=== PATIENT | female | born 1970 | race Caucasian/White ===

== ENCOUNTER 2016-10-13 14:10 | Emergency (ER) | payer BC ==
[2016-10-13 14:56] VITALS: BP 103/58
--- NOTE | 2016-10-13 15:55 | UC ---
Throat Pain/Nasal Mac HPI - HPI Summary HPI Summary: FIVE DAYS OF SORE THROAT PRODUCTIVE COUGH FOR THREE DAYS. NO FEVER. NO WHEEZING. IS UNDERGOING CHEMOTHERAPY FOR OVARIAN CANCER, TWO MORE TREATMENTS, NEXT TREATMENT THIS SATURDAY. - History of Current Complaint Chief Complaint: UCGeneralIllness Stated Complaint: COUGH,TIGHT CHEST Time Seen by Provider: 10/13/16 15:38 Hx Obtained From: Patient Hx Last Menstrual Period: menopausal Onset/Duration: Gradual Onset, Lasting Days, Still Present Severity: Moderate Pain Intensity: 0 Pain Scale Used: 0-10 Numeric Cough: Nonproductive Associated Signs & Symptoms: Positive: Hoarseness, Nasal Discharge - Epiglottits Risk Factors Epiglottis Risk Factors: Negative - Allergies/Home Medications Allergies/Adverse Reactions: Allergies Allergy/AdvReac Type Severity Reaction Status Date / Time Latex Allergy Mild Rash Verified 10/13/16 14:56 Adhesive Tape Allergy Rash Verified 10/13/16 14:56 Home Medications: Home Medications Magnesium CITRATE* [Citrate of Magnesia*] 300 ml PO ONCE 10/13/16 [History Confirmed 10/13/16] Potassium Chlor TAB* [Klor Con ER TAB*] 10 meq PO DAILY 10/13/16 [History Confirmed 10/13/16] PMH/Surg Hx/FS Hx/Imm Hx Previously Healthy: Yes Endocrine History Of: Denies: Diabetes Cardiovascular History Of: Denies: Cardiac Disorders, Hypertension, Pacemaker/ICD Respiratory History Of: Reports: Asthma GI/ History Of: Denies: Renal Disease - Surgical History Surgical History: Yes Surgery Procedure, Year, and Place: Adnoidectomy. Cholecystectomy. Diaphragm wrapped around esophagus to fix GERD. left index finger and right middle finger cysts removed. C SECTION. Ovarian cancer - Family History Known Family History: Positive: Cardiac Disease, Hypertension - Social History Occupation: Employed Full-time Lives: With Family Alcohol Use: Occasionally Substance Use Type: None Smoking Status (MU): Never Smoked Tobacco - Immunization History Most Recent Influenza Vaccination: NOT THIS YEAR Review of Systems Constitutional: Negative Skin: Negative Eyes: Negative ENT: Sore Throat, Nasal Discharge Respiratory: Cough Cardiovascular: Negative Gastrointestinal: Negative Genitourinary: Negative Motor: Negative Neurovascular: Negative Musculoskeletal: Negative Neurological: Negative Psychological: Negative All Other Systems Reviewed And Are Negative: Yes Physical Exam Triage Information Reviewed: Yes Appearance: No Pain Distress, Well-Nourished, Ill-Appearing - MILDLY Vital Signs: Initial Vital Signs Temp 98.9 F 10/13/16 14:51 Pulse 97 10/13/16 14:51 Resp 16 10/13/16 14:51 BP 103/58 10/13/16 14:51 Pulse Ox 99 10/13/16 14:51 Vital Signs Reviewed: Yes Eye Exam: Normal ENT: Positive: Normal ENT inspection, Pharynx normal, Nasal congestion, TMs normal Dental Exam: Normal Neck exam: Normal Neck: Positive: Supple, Nontender, No Lymphadenopathy Respiratory Exam: Other - COUGH Respiratory: Positive: Chest non-tender, Lungs clear, Normal breath sounds, No respiratory distress, No accessory muscle use Cardiovascular Exam: Normal Cardiovascular: Positive: RRR, No Murmur Abdominal Exam: Normal Musculoskeletal Exam: Normal Musculoskeletal: Positive: Strength Intact, ROM Intact Neurological Exam: Normal Psychological Exam: Normal Skin Exam: Normal Throat Pain/Nasal Course/Dx - Differential Dx/Diagnosis Differential Diagnosis/HQI/PQRI: Pharyngitis, Sinusitis, URI Provider Diagnoses: SINUSITIS. BRONCHITIS Discharge - Discharge Plan Condition: Stable Disposition: HOME Prescriptions: Azithromycin TAB* [Zithromax TAB (Z-JOSE) 250 mg #6 tabs] 250 mg PO DAILY #6 tab Patient Education Materials: Sinusitis (ED), Acute Bronchitis (ED) Referrals: Sam MO,Italo Martinez [Primary Care Provider] -
== END 2016-10-13 15:50 | disposition home or self-care (01) ==
LOC: UCCORT 14:10
DX: J32.9 Chronic sinusitis, unspecified (principal); J40 Bronchitis, not specified as acute or chronic; Z90.49 Acquired absence of other specified parts of digestive tract
CPT/HCPCS: 99212; G0463

== ENCOUNTER 2018-06-18 17:23 | Emergency (ER) | payer BC ==
[2018-06-18 17:59] VITALS: BP 119/64
--- NOTE | 2018-06-18 18:16 | UC ---
Complaint Female HPI - HPI Summary HPI Summary: 48-year-old woman comes in with a chief complaint of burning with urination. This started about 3-4 days ago. It's been waxing and waning. Since this morning and it's been very frequent and she has a urgency and hurts quite a bit when she urinates. Pain is less when she is not urinating. Primary pain is in the suprapubic region and at the urethra. She does have some bilateral flank pain. No fevers. She was constipated but then she had a bowel movement which did resolve that issue. - History Of Current Complaint Chief Complaint: UCGU Stated Complaint: URINARY COMPLAINT Time Seen by Provider: 06/18/18 17:34 Hx Last Menstrual Period: 2013 Pain Intensity: 3 - Allergies/Home Medications Allergies/Adverse Reactions: Allergies Allergy/AdvReac Type Severity Reaction Status Date / Time latex Allergy Intermediate Rash Verified 06/18/18 18:00 Adhesive Tape Allergy Rash Verified 10/13/16 14:56 Home Medications: Home Medications Ibuprofen TAB* [Motrin TAB* 600 MG] 400 mg PO Q4H PRN 06/18/18 [History Confirmed 06/18/18] PMH/Surg Hx/FS Hx/Imm Hx Previously Healthy: Yes - OVARIAN CA; S/P TOTAL HYSTERECTOMY - Surgical History Surgical History: Yes Surgery Procedure, Year, and Place: Adnoidectomy. Cholecystectomy. Diaphragm wrapped around esophagus to fix GERD. left index finger and right middle finger cysts removed. C SECTION; 07/2017 benign abdominal masses; removed; inadverant intestinal laceration and subsequent 1.5 inch section taken. Ovarian cancer hysterectomy - Family History Known Family History: Positive: Cardiac Disease, Hypertension - Social History Alcohol Use: Occasionally Substance Use Type: None Smoking Status (MU): Never Smoked Tobacco - Immunization History Most Recent Influenza Vaccination: NOT THIS YEAR Review of Systems All Other Systems Reviewed And Are Negative: Yes Constitutional: Positive: Negative Skin: Positive: Negative Eyes: Positive: Negative ENT: Positive: Negative Respiratory: Positive: Negative Cardiovascular: Positive: Negative Gastrointestinal: Positive: Abdominal Pain Genitourinary: Positive: Dysuria, Frequency, Urgency Motor: Positive: Negative Neurovascular: Positive: Negative Musculoskeletal: Positive: Negative Neurological: Positive: Negative Psychological: Positive: Negative Is Patient Immunocompromised?: No Physical Exam Triage Information Reviewed: Yes Appearance: Well-Appearing, No Pain Distress, Well-Nourished Vital Signs: Initial Vital Signs Temp 97.9 F 06/18/18 17:49 Pulse 73 06/18/18 17:49 Resp 18 06/18/18 17:49 BP 119/64 06/18/18 17:49 Pulse Ox 100 06/18/18 17:49 Vital Signs Reviewed: Yes Eye Exam: Normal Eyes: Positive: Conjunctiva Clear Neck exam: Normal Neck: Positive: Supple Respiratory: Positive: Lungs clear, Normal breath sounds, No respiratory distress Cardiovascular: Positive: RRR Abdomen Description: Positive: Soft, CVA Tenderness (R) - MILD, CVA Tenderness ( L) - MILD, Other: - MILD SUPRAPUBIC TENDERNESS Bowel Sounds: Positive: Present Musculoskeletal Exam: Normal Musculoskeletal: Positive: Strength Intact, ROM Intact Neurological Exam: Normal Neurological: Positive: Alert, Muscle Tone Normal Psychological Exam: Normal Psychological: Positive: Age Appropriate Behavior Skin Exam: Normal Complaint Female Dx - Course Course Of Treatment: We discussed the urinalysis results. Symptoms are consistent with UTI and will treat with Keflex. Patient reports that she had difficulty with urination just prior to finding out she had ovarian cancer. She reports that she has CT exams every 4 months and her last one was 2 months ago and was normal. Plan is to treat for UTI and as long as she improves and just follow-up with primary care doctor but if she is not improving she needs to get reevaluated. - Differential Dx/Diagnosis Provider Diagnosis: UTI (urinary tract infection) Discharge - Sign-Out/Discharge Documenting (check all that apply): Patient Departure All imaging exams completed and their final reports reviewed: No Studies - Discharge Plan Condition: Stable Disposition: HOME Prescriptions: Cephalexin CAP* [Keflex CAP*] 500 mg PO TID #21 cap Patient Education Materials: Urinary Tract Infection in Women (ED) Referrals: Karolina PATRICIO,Amelia [Primary Care Provider] - Additional Instructions: FOLLOW UP WITH YOUR DOCTOR IF NOT COMPLETELY IMPROVED. GET RECHECKED FOR ANY WORSENING OF YOUR CONDITION; FEVER, PAIN, YOU FEEL ILL OR QUESTIONS OR CONCERNS. - Billing Disposition and Condition Condition: STABLE Disposition: Home
== END 2018-06-18 18:20 | disposition home or self-care (01) ==
LOC: UCCORT 17:23
DX: N39.0 Urinary tract infection, site not specified (principal); Z85.43 Personal history of malignant neoplasm of ovary
CPT/HCPCS: 81003; 87086; 99212; G0463

== ENCOUNTER 2018-12-30 19:39 | Emergency (ER) | payer BC ==
--- OUTSIDE RECORDS SUMMARY | 2018-12-30 20:06 | XMS REPORT | Continuity of Care Document ---
:1970 External Reference #:[id number] Author Name Lia Diaz MD Address [address] [facility] [address] [place] [address] Care Team Providers Name Role Phone Amelia Turcios Care Team Information Sulfide Head Operator Unavailable Italo Vargas MD Primary Care Physician Unavailable Payers Date Identification Numbers Payment Provider Subscriber Effective: 2013 Policy Number: [id number] [employer] Rose Marie Batista PayID: [id number] [address] [address] [place] [address] Social History Type Date Description Comments Sex Unknown Tobacco Use Reviewed: 06/18/17 Never Smoked Cigarettes Smoking Status Reviewed: 06/18/17 Never Smoked Cigarettes ETOH Use Occasionally consumes beer Allergies, Adverse Reactions, Alerts Active Allergies Reaction Severity Comments Date NKDA 06/15/2016 Adhesives RASH 06/15/2016 Latex RASH 06/15/2016 Medications Active Medications SIG Qnty Indications Ordering Provider Date Proair HFA 2 puffs qid, Unknown 108(90Base) mcg/Act prn Aerosol Asmanex HFA 2 puffs, bid Unknown 100mcg/Act Aerosol Atorvastatin Calcium 2-3 times Unknown 20mg weekly Tablets Adult Aspirin Ec Low qd Unknown Strength 81mg Tablets DR Fludrocortisone Acetate 1 daily Unknown 0.1mg Tablets History Medications Ibuprofen 1 by mouth with 90tabs Jacqueline Palacios, 12/27/2017 - 600mg Tablets food every 6-8 LUBRICATING SPECIALIST 08/02/2018 hours as needed pain Hydrocodone-Acetaminophe 1-2 by mouth every 40tabs Jacqueline Palacios, 2016 - n 4-6 hours as needed LUBRICATING SPECIALIST 07/31/2017 5-325mg Tablets pain after surgery Prepopik use as directed by 1kit Jacqueline Palacios, 06/26/2017 - 10-3.9-09si-HQ-GM your physician LUBRICATING SPECIALIST 07/31/2017 Packet Zofran 1 by mouth prn 2tabs Jacqueline Palacios, 06/26/2017 - 8mg Tablets nausea may repeat LUBRICATING SPECIALIST 07/31/2017 in 8hrs prn nausea Neomycin Sulfate 2 tabs by mouth at 6tabs Jacqueline Palacios, 06/26/2017 - 500mg 1pm, 3pm, 11pm day LUBRICATING SPECIALIST 07/31/2017 Tablets prior to surgery Metronidazole 2 tabs by mouth at 6tabs Jacqueline Palacios, 06/26/2017 - 500mg Tablets 1pm, 3pm and 11pm LUBRICATING SPECIALIST 07/31/2017 day before surgery Magnesium Oxide one by mouth 3 60tabs Jacqueline Palacios, 09/20/2016 - 400mg Tablets times per day LUBRICATING SPECIALIST 12/02/[address] [facility] Jacqueline Palacios, 08/31/2016 - 3.1mg/24HR Patches arm 24 hours prior LUBRICATING SPECIALIST 12/04/2016 to your chemotherapy date q 21 days Prochlorperazine Maleate 1 by mouth as 60tabs Jacqueline Palacios, 08/31/2016 - 10mg needed may repeat 1 LUBRICATING SPECIALIST 04/26/2017 Tablets tab in 8 hours as needed Neupogen 1 sq injection .500ml Melissa Espinoza, 08/21/2016 - 300mcg/0.5ML Soln every day as M.D. 08/28/2016 Prefill Syringe directed by qd x 3 Donated meds Ra Loratadine take one by mouth 30tabs Chemo, Patients 08/21/2016 - 10mg Tablets 1-2 hours before 12/04/2016 neulasta and then daily x 7 days Claritin every day and as Melissa Espinoza, 08/21/2016 - 10mg Tablets needed for neupogen M.D. 01/04/2017 x 5 and Neulasta qd x 7 Ciprofloxacin HCL one tablet by mouth 10tabs Jacqueline Palacios, 08/21/2016 - 500mg twice a day for 5 LUBRICATING SPECIALIST 08/28/2016 Tablets days Neulasta sc 24-48 hours .600ml Jacqueline Palacios, 08/20/2016 - 6mg/0.6ML Soln after chemo every LUBRICATING SPECIALIST 12/04/2016 Prefill Syringe 21 days as directed by Dexamethasone take 2 tabs in in 30tabs Melissa Espinoza, 08/01/2016 - 4mg Tablets the morning and at M.D. 12/04/2016 night the day before chemo and repeat the day after chemo each cycle Lovenox 1 sq inj. every day 42units Jacqueline Palacios, 07/20/2016 - 40mg/0.4ML Solution post op for 6wks LUBRICATING SPECIALIST 08/01/2016 B-6 1 by mouth twice a 60tabs Chemo, Patients 07/20/2016 - 50mg Tablets day 12/02/2017 Potassium Chloride ER one by mouth every 30tabs Jacqueline Palacios, 2016 - 20Meq day as directed MDD LUBRICATING SPECIALIST 12/02/2017 Tablets ER 1 Imodium A-D 2 now and 1 q 6 hrs Chemo, Patients 07/17/2016 - 2mg Capsules as needed diarrhea 12/04/2016 Zofran 1 by mouth q6hr as 60tabs Melissa Espinoza, 06/27/2016 - 4mg Tablets needed for nausea M.D. 12/04/2016 Ondansetron HCL 1-2tabs q 6-8hrs 2tabs Melissa Espinoza, 06/15/2016 - 4mg Tablets prn nausea M.D. 12/04/2016 Hydrocodone-Acetaminophe 1-2 by mouth every 40tabs Melissa Espinoza, 2015 - n 4-6 hours as needed M.D. 07/16/2016 5-325mg Tablets pain Ibuprofen 1 by mouth every 6 40tabs Jacqueline Palacios, 06/15/2016 - 600mg Tablets hours as needed LUBRICATING SPECIALIST 07/31/2017 pain after surgery Metronidazole 2 tabs by mouth at 6tabs Melissa Espinoza, 06/15/2016 - 500mg Tablets 1pm, 3pm and 11pm M.D. 07/06/2016 day before surgery Neomycin Sulfate 2 tabs by mouth at 6tabs Melissa Espinoza, 06/15/2016 - 500mg 1pm, 3pm, 11pm day M.D. 07/06/2016 Tablets prior to surgery Prepopik as directed 1kit Melissa Espinoza, 06/15/2016 - 10-3.4-82pj-YW-GM M.D. 07/04/2016 Packet Aspir-81 1 qd Unknown - 81mg Tablets DR 04/05/2017 Fludrocortisone Acetate 1 qd Unknown - 0.1mg 08/02/2018 Tablets Azithromycin 2 tablets on day 1 Unknown - 250mg Tablets and 1 tab by mouth 10/17/2016 x 3 days thereafter Lovenox 1 sq inj. every day Unknown - 40mg/0.4ML Solution post op for 6wks 08/27/2017 Immunizations CPT Code Status Date Vaccine Lot # [id number] Refused 06/15/2016 Influenza Virus Split Vaccine Vital Signs Date Vital Result Comment 12/09/2018 12:27pm BP Systolic 109 mmHg BP Diastolic 64 mmHg Heart Rate 66 /min Respiratory Rate 16 /min Height 61 inches 5'1" Weight 160.00 lb BSA (Body Surface Area) 1.72 m2 BMI (Body Mass Index) 30.2 kg/m2 Height in cm's 154.9 cm Weight 72.576 kg 08/12/2018 1:50pm BP Systolic 104 mmHg BP Diastolic 60 mmHg Heart Rate 83 /min Respiratory Rate 16 /min Height 61 inches 5'1" Weight 159.00 lb BSA (Body Surface Area) 1.71 m2 BMI (Body Mass Index) 30.0 kg/m2 Height in cm's 154.9 cm Weight 72.122 kg 04/08/2018 2:56pm BP Systolic 111 mmHg BP Diastolic 68 mmHg Heart Rate 85 /min Respiratory Rate 16 /min Height 61 inches 5'1" Weight 157.00 lb BSA (Body Surface Area) 1.70 m2 BMI (Body Mass Index) 29.7 kg/m2 Height in cm's 154.9 cm Weight 71.215 kg 12/03/2017 3:10pm BP Systolic 107 mmHg BP Diastolic 64 mmHg Heart Rate 75 /min Respiratory Rate 16 /min Height 61 inches 5'1" Weight 151.00 lb BSA (Body Surface Area) 1.68 m2 BMI (Body Mass Index) 28.5 kg/m2 Height in cm's 154.9 cm Weight 68.494 kg 08/29/2017 9:30am BP Systolic 107 mmHg BP Diastolic 60 mmHg Heart Rate 74 /min Respiratory Rate 16 /min Height 61 inches 5'1" Weight 144.00 lb BSA (Body Surface Area) 1.64 m2 BMI (Body Mass Index) 27.2 kg/m2 Height in cm's 154.9 cm Weight 65.318 kg 08/01/2017 9:03am BP Systolic 109 mmHg BP Diastolic 66 mmHg Heart Rate 97 /min Respiratory Rate 16 /min Height 61 inches 5'1" Weight 138.00 lb BSA (Body Surface Area) 1.61 m2 BMI (Body Mass Index) 26.1 kg/m2 Height in cm's 154.9 cm Weight 62.597 kg 06/18/2017 2:48pm BP Systolic 105 mmHg BP Diastolic 60 mmHg Heart Rate 65 /min Respiratory Rate 16 /min Height 61 inches 5'1" Weight 147.00 lb BSA (Body Surface Area) 1.66 m2 BMI (Body Mass Index) 27.8 kg/m2 Height in cm's 154.9 cm Weight 66.679 kg 05/16/2017 11:52am BP Systolic 111 mmHg BP Diastolic 59 mmHg Heart Rate 90 /min Respiratory Rate 16 /min Height 61 inches 5'1" Weight 144.00 lb BSA (Body Surface Area) 1.64 m2 BMI (Body Mass Index) 27.2 kg/m2 Height in cm's 154.9 cm Weight 65.318 kg 02/07/2017 11:52am BP Systolic 107 mmHg BP Diastolic 66 mmHg Heart Rate 85 /min Respiratory Rate 16 /min Height 61 inches 5'1" Weight 146.00 lb BSA (Body Surface Area) 1.65 m2 BMI (Body Mass Index) 27.6 kg/m2 Height in cm's 154.9 cm Weight 66.226 kg 12/07/2016 11:21am BP Systolic 111 mmHg BP Diastolic 70 mmHg Heart Rate 87 /min Respiratory Rate 16 /min Height 61 inches 5'1" Weight 143.00 lb BSA (Body Surface Area) 1.64 m2 BMI (Body Mass Index) 27.0 kg/m2 Height in cm's 154.9 cm Weight 64.865 kg 11/09/2016 8:57am BP Systolic 121 mmHg BP Diastolic 72 mmHg Heart Rate 98 /min Respiratory Rate 16 /min Height 61 inches 5'1" Weight 130.00 lb O2 % BldC Oximetry 98 % BSA (Body Surface Area) 1.57 m2 BMI (Body Mass Index) 24.6 kg/m2 Height in cm's 154.9 cm Weight 58.968 kg 10/15/2016 9:25am BP Systolic 111 mmHg BP Diastolic 69 mmHg Heart Rate 123 /min Respiratory Rate 16 /min Height 61 inches 5'1" Weight 139.00 lb O2 % BldC Oximetry 98 % BSA (Body Surface Area) 1.62 m2 BMI (Body Mass Index) 26.3 kg/m2 Height in cm's 154.9 cm Weight 63.050 kg 09/21/2016 8:47am BP Systolic 114 mmHg BP Diastolic 63 mmHg Heart Rate 100 /min Respiratory Rate 16 /min Height 61 inches 5'1" Weight 136.00 lb O2 % BldC Oximetry 100 % BSA (Body Surface Area) 1.60 m2 BMI (Body Mass Index) 25.7 kg/m2 Height in cm's 154.9 cm Weight 61.690 kg 08/31/2016 8:56am BP Systolic 114 mmHg BP Diastolic 69 mmHg Heart Rate 100 /min Respiratory Rate 16 /min Height 61 inches 5'1" Weight 132.00 lb BSA (Body Surface Area) 1.58 m2 BMI (Body Mass Index) 24.9 kg/m2 Height in cm's 154.9 cm Weight 59.875 kg 08/21/2016 2:34pm BP Systolic 115 mmHg BP Diastolic 70 mmHg Heart Rate 97 /min Body Temperature 97.6 F Height 61 inches 5'1" O2 % BldC Oximetry 99 % Height in cm's 154.9 cm 08/10/2016 9:12am BP Systolic 108 mmHg BP Diastolic 64 mmHg Heart Rate 98 /min Respiratory Rate 16 /min Height 61 inches 5'1" Weight 133.00 lb O2 % BldC Oximetry 97 % BSA (Body Surface Area) 1.59 m2 BMI (Body Mass Index) 25.1 kg/m2 Height in cm's 154.9 cm Weight 60.329 kg 07/20/2016 9:37am BP Systolic 97 mmHg BP Diastolic 60 mmHg Heart Rate 86 /min Respiratory Rate 16 /min Height 61 inches 5'1" Weight 124.00 lb O2 % BldC Oximetry 98 % BSA (Body Surface Area) 1.54 m2 BMI (Body Mass Index) 23.4 kg/m2 Height in cm's 154.9 cm Weight 56.246 kg 07/06/2016 1:29pm BP Systolic 111 mmHg Post Hydration BP Diastolic 71 mmHg Post Hydration Heart Rate 82 /min Body Temperature 98.1 F Height 61 inches 5'1" O2 % BldC Oximetry 98 % Height in cm's 154.9 cm 07/06/2016 10:37am BP Systolic 113 mmHg BP Diastolic 66 mmHg Heart Rate 106 /min Body Temperature 98.4 F Respiratory Rate 16 /min Height 61 inches 5'1" Weight 123.00 lb BSA (Body Surface Area) 1.54 m2 BMI (Body Mass Index) 23.2 kg/m2 Height in cm's 154.9 cm Weight 55.793 kg 06/15/2016 11:19am BP Systolic 115 mmHg BP Diastolic 73 mmHg Heart Rate 77 /min Respiratory Rate 16 /min Height 61 inches 5'1" Weight 139.00 lb BSA (Body Surface Area) 1.62 m2 BMI (Body Mass Index) 26.3 kg/m2 Height in cm's 154.9 cm Weight 63.050 kg Results Test Date Facility Test Result H/L Range Note Laboratory test 11/26/2018 Lab [facility] [place] 125 @ 4.7 U/mL (<30.2) 1 finding [phone] Laboratory test 11/26/2018 [facility] Urea Nitrogen 23 mg/dL (7- 24) finding [phone] Creatinine 11/26/2018 [facility] Creatinine 0.76 mg/dL (0.60-1.00 ) [phone] GFR >60 ml/min/1.73m2 (>59) GFR ( Amer) >60 ml/min/1.73m2 (>59) GFR Interpretation <SEE NOTE> 2 Laboratory test finding 07/18/2018 [facility] [place] 125 <pending> BUN - Urea Nitrogen <pending> Creatinine Serum Mass/Vol <pending> Laboratory test 07/18/2018 [facility] Urea Nitrogen 22 mg/dL (7- 24) finding [phone] Creatinine 07/18/2018 Lab [facility] Creatinine 0.83 mg/dL (0.60-1.00 ) [phone] GFR >60 ml/min/1.73m2 (>59) GFR ( Amer) >60 ml/min/1.73m2 (>59) GFR Interpretation <SEE NOTE> 3 Laboratory test 07/18/2018 Lab [facility] [place] 125 @ 4.9 U/mL (<30.2) 4 finding [phone] Creatinine 04/26/2017 [facility] Creatinine 0.71 mg/dL (0.60-1.00 ) [phone] GFR >60 ml/min/1.73m2 (>59) GFR ( Amer) >60 ml/min/1.73m2 (>59) GFR Interpretation <SEE NOTE> 5 Laboratory test 04/26/2017 [facility] Urea Nitrogen 21 mg/dL (7- 24) finding [phone] Laboratory test 04/26/2017 [facility] [place] 125 @ 3.7 U/mL (<21.0) 6 finding [phone] C Diff Toxin B 07/06/2016 [facility] Specimen STOOL PCR Stool [phone] Description C Diff Toxin B NEGATIVE (Neg) 027 Nap1 B1 NEGATIVE (Neg) Comment NOTE: IF REFLEX <SEE NOTE> 7 1 ASSAY BY IMMUNOCHEMILUMINOMETRIC ASSAY ON THE [employer] XPT. VALUES OBTAINED WITH DIFFERENT METHODS OR KITS CANNOT BE USED INTERCHANGEABLY FOR PATIENT MONITORING. RESULTS CANNOT BE INTERPRETED ABSOLUTE EVIDENCE OF THE PRESENCE OR ABSENCE OF MALIGNANCY. THE TEST IS NOT INTERPRETABLE IN . 2 NORMAL KIDNEY FUNCTION OR MILD DISEASE - GFR >OR=60 CHRONIC KIDNEY DISEASE - GFR 15 - 59 RENAL FAILURE - GFR <15 Est. GFR calculation based on the MDRD study equation, which assumes a steady state for creatinine. Est. GFR should not be used for medication dosing. 3 NORMAL KIDNEY FUNCTION OR MILD DISEASE - GFR >OR=60 CHRONIC KIDNEY DISEASE - GFR 15 - 59 RENAL FAILURE - GFR <15 Est. GFR calculation based on the MDRD study equation, which assumes a steady state for creatinine. Est. GFR should not be used for medication dosing. 4 ASSAY BY IMMUNOCHEMILUMINOMETRIC ASSAY ON THE [employer] XPT. VALUES OBTAINED WITH DIFFERENT METHODS OR KITS CANNOT BE USED INTERCHANGEABLY FOR PATIENT MONITORING. RESULTS CANNOT BE INTERPRETED ABSOLUTE EVIDENCE OF THE PRESENCE OR ABSENCE OF MALIGNANCY. THE TEST IS NOT INTERPRETABLE IN . 5 NORMAL KIDNEY FUNCTION OR MILD DISEASE - GFR >OR=60 CHRONIC KIDNEY DISEASE - GFR 15 - 59 RENAL FAILURE - GFR <15 Est. GFR calculation based on the MDRD study equation, which assumes a steady state for creatinine. Est. GFR should not be used for medication dosing. 6 ASSAY BY IMMUNOCHEMILUMINOMETRIC ASSAY ON THE [employer]EM[employer] 2000 XPi. VALUES OBTAINED WITH DIFFERENT METHODS OR KITS CANNOT BE USED INTERCHANGEABLY FOR PATIENT MONITORING. RESULTS CANNOT BE INTERPRETED ABSOLUTE EVIDENCE OF THE PRESENCE OR ABSENCE OF MALIGNANCY. THE TEST IS NOT INTERPRETABLE IN . 7 NOTE: IF REFLEX CULTURE FOR KLEBSIELLA OXYTOCA IS CLINICALLY INDICATED, PLEASE CONTACT THE [facility]OLOGY LAB[facility]ORY ([phone]) WITHIN 3 DAYS OF THIS REPORT. Procedures Date Code Description Status 11/26/2018 00311 Collection Of Blood From Completly Implantable Venous Completed Access Dev 09/24/2018 81328 Irrigation Of Implanted Device For Drug Delivery Completed 09/19/2018 87516 Irrigation Of Implanted Device For Drug Delivery Completed 07/18/2018 13182 Collection Of Blood From Completly Implantable Venous Completed Access Dev 05/09/2018 18692 Irrigation Of Implanted Device For Drug Delivery Completed 03/07/2018 17508 Irrigation Of Implanted Device For Drug Delivery Completed 12/25/2017 17267 Irrigation Of Implanted Device For Drug Delivery Completed 10/02/2017 39237 Irrigation Of Implanted Device For Drug Delivery Completed 07/12/2017 48245 Enterectomy Resect Small Intestine W/Anastomosis (Single Completed Resect) 04/26/2017 56361 Collection Of Blood From Completly Implantable Venous Completed Access Dev 02/18/2017 16717 Irrigation Of Implanted Device For Drug Delivery Completed 11/09/2016 14195 IV Hydration Each Addl Hour (Intervals Of Greater Than 30 Completed Min) 11/09/2016 92569 IV Sequential Up To 1 HR New Drug Completed 11/09/2016 92855 IV Push Ea Addl Subsequent Completed 11/09/2016 05221 Chemo Admin IV Initial Up To 1 HR /Single Drug Completed 11/09/2016 24014 Chemo Admin Sequential Ea Addl HR Drug W/75911 Completed 10/15/2016 78164 Chemo Admin Sequential Ea Addl HR Drug W/22651 Completed 10/15/2016 36369 Chemo Admin IV Initial Up To 1 HR /Single Drug Completed 10/15/2016 26395 IV Push Ea Addl Subsequent Completed 10/15/2016 16047 IV Sequential Up To 1 HR New Drug Completed 10/15/2016 74974 IV Hydration Each Addl Hour (Intervals Of Greater Than 30 Completed Min) 09/21/2016 02102 IV Hydration Each Addl Hour (Intervals Of Greater Than 30 Completed Min) 09/21/2016 53585 IV Sequential Up To 1 HR New Drug Completed 09/21/2016 29006 IV Push Ea Addl Subsequent Completed 09/21/2016 13539 Chemo Admin IV Initial Up To 1 HR /Single Drug Completed 09/21/2016 51113 Chemo Admin IV Each Addl HR Completed 09/21/2016 12695 Chemo Admin Sequential Ea Addl HR Drug W/03244 Completed 08/31/2016 50188 Chemo Admin Sequential Ea Addl HR Drug W/02755 Completed 08/31/2016 37287 Chemo Admin IV Each Addl HR Completed 08/31/2016 86597 Chemo Admin IV Initial Up To 1 HR /Single Drug Completed 08/31/2016 47522 IV Push Ea Addl Subsequent Completed 08/31/2016 04693 IV Sequential Up To 1 HR New Drug Completed 08/31/2016 65809 IV Hydration Each Addl Hour (Intervals Of Greater Than 30 Completed Min) 08/21/2016 88075 Admin Of Inj (Therapeutic,Phrophylactic Or Diagnostic Subq Completed 08/10/2016 69869 IV Hydration Each Addl Hour (Intervals Of Greater Than 30 Completed Min) 08/10/2016 87982 IV Push Ea Addl Subsequent Completed 08/10/2016 07265 Chemo Admin IV Initial Up To 1 HR /Single Drug Completed 08/10/2016 36151 Chemo Admin IV Each Addl HR Completed 08/10/2016 50373 Chemo Admin Sequential Ea Addl HR Drug W/82823 Completed 07/20/2016 09461 Chemo Admin Sequential Ea Addl HR Drug W/67529 Completed 07/20/2016 01435 Chemo Admin IV Each Addl HR Completed 07/20/2016 43567 Chemo Admin IV Initial Up To 1 HR /Single Drug Completed 07/20/2016 71691 IV Push Ea Addl Subsequent Completed 07/20/2016 62950 IV Hydration Each Addl Hour (Intervals Of Greater Than 30 Completed Min) 07/06/2016 27144 IV Push Ea Addl Subsequent Completed 07/06/2016 59162 IV Push Initial Drug Completed 07/06/2016 65258 IV Hydration Each Addl Hour (Intervals Of Greater Than 30 Completed Min) 06/19/2016 01351 Bilateral Salpingo-Oophorectomy,W/Pelvic Lymphadenectomy Completed Paraaort Encounters Type Date Location Provider Dx Diagnosis Office Visit 12/09/2018 [facility] C56.1 Malignant neoplasm 12:15p satnam CHO MD of right ovary 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 R10.31 Right lower quadrant pain Office Visit 08/12/2018 2:30p [facility] L[facility] Diaz C56.1 Malignant satnam CHO MD neoplasm of right ovary 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 R59.0 Localized enlarged lymph nodes Office Visit 04/08/2018 3:00p [facility] Jacqueline Palacios C56.2 Malignant satnam CHO NP neoplasm of left ovary 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 Z12.31 Encntr screen mammogram for malignant neoplasm of breast R19.7 Diarrhea, unspecified N95.1 Menopausal and female climacteric states Office Visit 12/03/2017 3:15p [facility] [place], C56.1 Malignant CNY, pc neoplasm of right ovary 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 K59.1 Functional diarrhea Office Visit 06/18/2017 3:00p [facility] L[facility] Wynn C78.6 Secondary Of CNY, pc MD Emily malignant neoplasm of retroperiton and peritoneum 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 Office Visit 05/16/2017 11:45a [facility] L[facility] Farrisgladys C56.1 Malignant CNY, [place] neoplasm of right ovary R59.0 Localized enlarged lymph nodes K59.1 Functional diarrhea Office Visit 02/07/2017 11:45a [facility] L[facility] Wynn Emily C56.1 Malignant CNY, pc neoplasm of right ovary R19.7 Diarrhea, unspecified K62.5 Hemorrhage of anus and rectum Office Visit 12/07/2016 11:30a [facility] Espinoza C56.1 Malignant CNY, pc Solange neoplasm of right ovary H91.8x3 Other specified hearing loss, bilateral Office Visit 11/09/2016 8:45a [facility] Jacqueline Suzanne C56.1 Malignant CNY, pc LUBRICATING SPECIALIST neoplasm of right ovary 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 E83.42 Hypomagnesemia H91.8x3 Other specified hearing loss, bilateral Z01.818 Encounter for other preprocedural examination Z79.899 Other terminal carman (current) drug therapy Z51.11 Encounter for antineoplastic chemotherapy Office Visit 10/15/2016 9:15a [facility] Palacios C56.1 Malignant CNY, pc LUBRICATING SPECIALIST neoplasm of right ovary 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.8x3 Other specified hearing loss, bilateral Z01.818 Encounter for other preprocedural examination Z79.899 [place] [facility]current[facility] drug therapy Z51.11 Encounter for antineoplastic chemotherapy Office Visit 09/21/2016 9:15a [facility]qu[facility] Palacios C56.1 Malignant CNY, pc LUBRICATING SPECIALIST neoplasm of right ovary 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 Z01.818 Encounter for other preprocedural examination Z79.899 [facility] [place] [facility] (current) drug therapy Z51.11 Encounter for antineoplastic chemotherapy Office Visit 08/31/2016 9:15a [facility]queline Teixeirarashard, C56.1 Malignant CNY, pc LUBRICATING SPECIALIST neoplasm of right ovary 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 D70.1 Agranulocytosis secondary to cancer chemotherapy Z01.818 Encounter for other preprocedural examination Z79.899 Other [place] [facility] (current) drug therapy Z51.11 Encounter for antineoplastic chemotherapy Office Visit 08/10/2016 8:45a [facility]eline Teixe[place], C56.1 Malignant CNY, pc LUBRICATING SPECIALIST neoplasm of right ovary Z01.818 Encounter for other preprocedural examination Z79.899 Other [place] (current) drug therapy Z51.11 Encounter for antineoplastic chemotherapy H91.8x3 Other specified hearing loss, bilateral Office Visit 07/20/2016 9:45a [facility] Jacqueline Teixeirarashard, C56.1 Malignant CNY, pc LUBRICATING SPECIALIST neoplasm of right ovary R19.7 Diarrhea, unspecified H91.8x3 Other specified hearing loss, bilateral Z01.818 Encounter for other preprocedural examination Z51.11 Encounter for antineoplastic chemotherapy Office Visit 07/06/2016 10:45a [facility] Espinoza, E86.0 Dehydration CNY, pc M.D. R19.7 Diarrhea, unspecified Z01.818 Encounter for other preprocedural examination 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 Z51.11 Encounter for antineoplastic chemotherapy Office Visit 06/15/2016 12:00p [facility] Espinoza, D39.11 Neoplasm of CNY, pc M.D. uncertain behavior of right ovary Plan of Treatment Future Appointment(s):06/12/2019 2:30 pm - Jacqueline Palacios NP at [facility], 2019 3:45 pm - Lia Diaz MD at [facility], 12/09/2018 - Lia Diaz, MD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Comments:In remission with normal exam, CT and CA125.Follow up:In 6 months for reevaluation of disease.C56.2 Malignant neoplasm of left fihlrK89.31 Right lower quadrant painComments:Could be due to the inflammation seen in the ileum previously - would try probiotics and if no improvement can return to see GI.
[2018-12-30 20:15] VITALS: BP 122/71
--- NOTE | 2018-12-30 20:24 | UC ---
Lower Extremity/Ankle HPI - HPI Summary HPI Summary: 48 y/o female presents to the urgent care c/o RT ankle pain for the past 3 months which has worsen w/ time. Pain is worse when she wakes up and gets better through out the day. but lately at the end of the day is worse and ankle is mildly swollen on the medial aspect for her RT ankle. At rest pain is 3/10, but when she walks or puts pressure, it is 7/10 radiating to her heel. Pt has been taken Ibuprofen 600mg PO to alleviate symptoms. Pt can ambulate w/o limping,. Pt denies Hx of Gout, fever, dizziness, SOB, chest pain, abdominal pain, N/V/D, BORGES, numbness or tingling sensation over her lower extremities. - History of Current Complaint Chief Complaint: UCLowerExtremity Stated Complaint: RT ANKLE COMPLAINT Time Seen by Provider: 12/30/18 20:24 Hx Obtained From: Patient Hx Last Menstrual Period: 2013 ?: No - menopausal Onset/Duration: Gradual Onset, Lasting Weeks - 3 months, Still Present Severity Initially: Mild Severity Currently: Moderate Pain Intensity: 8 Pain Scale Used: 0-10 Numeric Aggravating Factor(s): Standing, Ambulation Alleviating Factor(s): Rest, Elevation, OTC Meds Able to Bear Weight: Yes - Risk Factors Gout Risk Factors: Negative DVT Risk Factors: Negative Septic Arthritis Risk Factor: Negative - Allergies/Home Medications Allergies/Adverse Reactions: Allergies Allergy/AdvReac Type Severity Reaction Status Date / Time latex Allergy Intermediate Rash Verified 12/30/18 20:14 Adhesive Tape Allergy Rash Verified 12/30/18 20:14 Home Medications: Home Medications Aspirin 81 mg CHEW TAB* 81 mg PO DAILY 12/30/18 [History Confirmed 12/30/18] PMH/Surg Hx/FS Hx/Imm Hx Previously Healthy: Yes Other Cardiovascular History: low blod pressure Respiratory History: Asthma - Surgical History Surgical History: Yes Surgery Procedure, Year, and Place: Adnoidectomy. Cholecystectomy. Diaphragm wrapped around esophagus to fix GERD. left index finger and right middle finger cysts removed. C SECTION; 07/2017 benign abdominal masses; removed; inadverant intestinal laceration and subsequent 1.5 inch section taken. Ovarian cancer hysterectomy - Family History Known Family History: Positive: Cardiac Disease, Hypertension - Social History Occupation: Employed Full-time Lives: With Family Alcohol Use: Occasionally Substance Use Type: None Smoking Status (MU): Never Smoked Tobacco - Immunization History Most Recent Influenza Vaccination: NOT THIS YEAR Review of Systems All Other Systems Reviewed And Are Negative: Yes Constitutional: Positive: Negative Skin: Positive: Negative Eyes: Positive: Negative ENT: Positive: Negative Respiratory: Positive: Negative Cardiovascular: Positive: Negative Gastrointestinal: Positive: Negative Genitourinary: Positive: Negative Motor: Positive: Negative Neurovascular: Positive: Negative Musculoskeletal: Positive: Decreased ROM - RT ankle, Other: - RT ankle pain x 3 months Neurological: Positive: Negative Psychological: Positive: Negative Is Patient Immunocompromised?: No Physical Exam - Summary Physical Exam Summary: Vital Signs Reviewed: Yes General: well developed, well nourished female, sitting in the examining table w /o any apparent distress Eyes: Positive: Conjunctiva Clear - PERRLA, EOMI, ENT: Positive: Normal ENT inspection, Hearing grossly normal, Pharynx normal, TMs normal Neck: Positive: Supple, Nontender, No Lymphadenopathy Respiratory: Positive: Chest non-tender, Lungs clear, Normal breath sounds, No respiratory distress Cardiovascular: Positive: RRR, No Murmur, Pulses Normal, Brisk Capillary Refill Abdomen Description: Positive: Nontender, No Organomegaly, Soft. Negative: CVA Tenderness (R), CVA Tenderness (L) Bowel Sounds: Positive: Present Musculoskeletal: - Ankle: Pt is able to bear weight and ambulate w/ limping. The R ankle is without obvious asymmetry or deformity when compared to the L ankle. Decreased ROM due to pain. Mild swelling at the medial malleolus, with tenderness to palpation also point tenderness over the heel. No ecchymosis or bruising observed. NO Tenderness to palpation over the lateral malleolus , no swelling observed. Talar tilt test is negative for ligament laxity to valgus or varus stress. Negative anterior drawer. Peroneal nerve is intact with strong eversion and plantar flexion. Positive sensation over the Rt foot and Rt ankle, positive pulses, capillary refill intact Neurological Exam: Normal Psychological Exam: Normal Skin: warm and dry Triage Information Reviewed: Yes Vital Signs: Initial Vital Signs Temp 98.9 F 12/30/18 20:10 Pulse 73 12/30/18 20:10 Resp 16 12/30/18 20:10 BP 122/71 12/30/18 20:10 Pulse Ox 98 12/30/18 20:10 Lower Extremity Course/Dx - Course Course Of Treatment: 48 y/o female presents to the urgent care c/o RT ankle pain for the past 3 months which has worsen w/ time. Pain is worse when she wakes up and gets better through out the day. but lately at the end of the day is worse and ankle is mildly swollen on the medial aspect for her RT ankle. At rest pain is 3/10, but when she walks or puts pressure, it is 7/10 radiating to her heel. Pt has been taken Ibuprofen 600mg PO to alleviate symptoms. Pt can ambulate w/o limping,. Pt denies Hx of Gout, fever, dizziness, SOB, chest pain, abdominal pain, N/V/D, BORGES, numbness or tingling sensation over her lower extremities. Hx obtained. Pt is hemodynamically stable, A&OX3, Vitals: WNL. RT knee X-ray, IMPRESSION: Soft tissue swelling, no acute fracture, heel spur as per DR nguyen. Final radiology report will be done tomorrow. Pt will be notified of any abnormality. Pt most likely with osteoarthritis vs plantar fasciitis and heel spur. Pt immobilized with gel ankle splint and SHAHEEN bandage by the nurse, and advised to continue w/ Ibuprofen PO to decrease swelling and pain. Pt advised RICE, and to f/u with PCP on orthopedic Dr Zhou or Sports medicine in 3 days if not improvement of symptoms for further treatment. Pt understood and agreed and left the clinic ambulating - Differential Dx/Diagnosis Differential Diagnosis/HQI/PQRI: Arthritis, Contusion, Fracture (Closed), Gout, Sprain, Strain, Tendonitis Provider Diagnosis: Osteoarthritis of right ankle, Acute right ankle pain, Heel spur Discharge - Sign-Out/Discharge Documenting (check all that apply): Patient Departure - D/C home All imaging exams completed and their final reports reviewed: No - Discharge Plan Condition: Stable Disposition: HOME Patient Education Materials: Osteoarthritis (ED) Forms: *Work Release Referrals: Karolina PATRICIO,Amelia [Primary Care Provider] - 1 Week Mele Zhou MD [Medical Doctor] - 3 Days [facility] [Provider Group] - 3 Days Additional Instructions: 1-Please continue taking Ibuprofen PO q6-8hrs prn as directed to alleviate pain and swelling. 2-Please apply ice, keep your ankle immobilized with the splint and SHAHEEN bandage. Elevate your ankle to decrease swelling 3- Please f/u with Orthopedic DR Zhou or [facility] in 3 days for further evaluation and treatment on your symptoms - Billing Disposition and Condition Condition: STABLE Disposition: Home
--- NOTE | 2018-12-31 11:26 | ED ---
Progress - Progress Note Progress Note: review of final read of the foot and ankle xrays no fx. Course/Dx - Diagnoses Provider Diagnoses: Osteoarthritis of right ankle, Acute right ankle pain, Heel spur Discharge - Sign-Out/Discharge Documenting (check all that apply): Patient Departure All imaging exams completed and their final reports reviewed: Yes - Discharge Plan Condition: Stable Disposition: HOME Patient Education Materials: Osteoarthritis (ED) Forms: *Work Release Referrals: [facility] [Provider Group] - 3 Days Mele Zhou MD [Medical Doctor] - 3 Days Amelia Turcios NP [Primary Care Provider] - 1 Week Additional Instructions: 1-Please continue taking Ibuprofen PO q6-8hrs prn as directed to alleviate pain and swelling. 2-Please apply ice, keep your ankle immobilized with the splint and SHAHEEN bandage. Elevate your ankle to decrease swelling 3- Please f/u with Orthopedic DR Zhou or [facility] in 3 days for further evaluation and treatment on your symptoms - Billing Disposition and Condition Condition: STABLE Disposition: Home
== END 2018-12-30 21:53 | disposition home or self-care (01) ==
LOC: UCCORT 19:39
DX: M19.071 Primary osteoarthritis, right ankle and foot (principal); M77.31 Calcaneal spur, right foot; Z85.43 Personal history of malignant neoplasm of ovary
CPT/HCPCS: 99213; G0463

== ENCOUNTER 2019-03-19 09:27 | Day surgery (SDC) | payer BC ==
[2019-03-19] MEDS ORDERED: Bupivacaine 0.25% SDV* 30 ML ONE (11:58)
[2019-03-19] MEDS ORDERED: Midazolam* 1 MG/ML 2 ML VIAL (2 MG) ONE (12:09)
[2019-03-19] MEDS ORDERED: fentaNYL* 50 MCG/ML 2 ML VIAL (100 MCG VIAL) ONE (12:09)
[2019-03-19] MEDS ORDERED: Propofol* 10 MG/ML 20 ML BTL ONE (12:16)
[2019-03-19] MEDS ORDERED: Naloxone* 0.4 MG/ML 1 ML VIAL IV PRN (13:05)
[2019-03-19] MEDS ORDERED: DiMENhydriNATE IV* 50 MG/ML VIAL ONE (13:16)
[2019-03-19 14:06] VITALS: BP 133/67
--- NOTE | 2019-03-19 20:54 | OP ---
DATE OF OPERATION: 03/19/19 - [facility] DATE OF : 72 SURGEON: Italo Lopez MD [employer]: JULIO Gale ANESTHESIOLOGIST: Dr. Mckeon. ANESTHESIA: Local MAC. PRE-OP DIAGNOSES: 1. Right trigger thumb. 2. Right de Quervain's disease. POST-OP DIAGNOSES: 1. Right trigger thumb. 2. Right de Quervain's disease. OPERATIVE PROCEDURE: 1. Right de Quervain's release. 2. Right trigger thumb release. INDICATIONS: Rose Marie has severe tendonitis. She has triggering of the thumb, is locked in flexion. The de Quervain's is a large nodule over the first dorsal compartment tendon sheath. We talked about her options. She wants to proceed. ESTIMATED BLOOD LOSS: 2 mL. COMPLICATIONS: None. FINDINGS: See above and below. DESCRIPTION OF PROCEDURE: Ms. Batista was seen in the preoperative holding area. The correct side, site, and procedure were identified. We came back to the operating room. The arm was prepped and draped in the usual fashion and a time-out was performed. The arm was exsanguinated with the Esmarch and the tourniquet was inflated to 250 mmHg. I had already anesthetized the operative site with 0.25% plain Marcaine. I began by making a 2 cm transverse incision just proximal to the wrist flexion crease. Dissection was carried down bluntly and full-thickness flaps were raised off the tendon sheath. Ragnell retractors were placed to protect the sensory nerve. The very thickened tendon sheath was released off the dorsal margin. The tendons were frayed underneath that. Some tenosynovitis was present, that was excised. I completed the release distally and proximally. There was not an accessory compartment. I debulked the tendon sheath. Everything was looking good. The wound was irrigated out and closed with 4-0 Monocryl suture and a Steri-Strip. I then made a 1 cm transverse incision in the MP joint flexion crease of the right thumb. Dissection was carried down bluntly and full-thickness flaps were raised off the tendon sheath. Ragnell retractors were placed. The tendon sheath was incised along the mid portion with a #15 blade. The release was completed distally and proximally with a tenotomy scissors. The thumb came out nicely in a full extension. I brought into hyperextension to compare it with the contra-lateral side, everything was looking very good. We irrigated out the wound. Skin was closed with 4-0 nylon sutures. Soft dressings were applied and she was taken to the recovery room in stable condition. [id number]/[facility] #: [id number] MTDD
== END 2019-03-19 14:28 | disposition home or self-care (01) ==
LOC: OREAST 09:27
PROVIDERS: ATTEND Orthopaedic Surgery Hand Surgery
DX: M65.4 Radial styloid tenosynovitis [de Quervain] (principal); M65.311 Trigger thumb, right thumb; M19.90 Unspecified osteoarthritis, unspecified site; J45.909 Unspecified asthma, uncomplicated; E78.5 Hyperlipidemia, unspecified; Z68.36 Body mass index [BMI] 36.0-36.9, adult; Z85.43 Personal history of malignant neoplasm of ovary
CPT/HCPCS: J1240; J2250; J2704; J3010; J3490

== ENCOUNTER → 2019-04-20 07:48 | Day surgery (SDC) | payer BC ==
--- NOTE | 2019-04-18 14:27 | HP ---
PREOPERATIVE HISTORY AND PHYSICAL: DATE OF ADMISSION: 04/20/19 ATTENDING PHYSICIAN: Dr. Italo Amador.* (DICTATED BY JULIO LOPEZ) CHIEF COMPLAINT: Right ankle pain. HISTORY OF PRESENT ILLNESS: This is a 49-year-old female followed by Dr. Amador for right ankle pain that began without known injury or trauma. The swelling and pain has been progressive over the last 6 months and made significantly worse with weightbearing. She has been managed conservatively with bracing, but an MRI performed after she did not improve show a tear of the posterior tibial tendon. Therefore, surgical intervention is recommended since she is in significant pain and is significantly debilitated. PAST MEDICAL HISTORY: Ovarian cancer with 6 cycles of chemotherapy, right thumb trigger finger and tendonitis, hypercholesterolemia. PAST SURGICAL HISTORY: Cholecystectomy, section, mass excision in the hand. She denies anesthetic complications from these procedures. CURRENT MEDICATIONS: 1. Fludrocortisone acetate 0.1 mg 1 tab by mouth daily. 2. Lipitor 20 mg 1 tab by mouth at night. 3. Aspirin 81 mg 1 tab by mouth at night. 4. Ibuprofen 600 mg 1 tab by mouth q.6 hours as needed for pain. ALLERGIES: No known drug allergies, but she is allergic to LATEX and ADHESIVE TAPE. FAMILY HISTORY: Positive for heart disease but no diabetes or cancer. SOCIAL HISTORY: She is and lives with her . 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 She denies tobacco or recreational drug use, but does consume occasional alcohol. REVIEW OF SYSTEMS: Fourteen systems are reviewed with the patient and are negative today. PHYSICAL EXAMINATION GENERAL: She is a well-developed, well-nourished female seated on exam chair, in mild distress, with appropriate affect. VITAL SIGNS: Height 60 inches, weight 160, blood pressure 114/ 86, pulse 70. HEENT: Normocephalic, atraumatic. Hearing and vision are grossly intact, with extraocular movements intact. NECK: Trachea is midline and symmetrical. LUNGS: Clear to auscultation. No wheezes, rales, or rhonchi appreciated. CARDIO: Regular rate and rhythm. Normal S1, S2. No murmurs, rubs or gallops noted. ABDOMEN: Nondistended, soft with bowel sounds present. MUSCULOSKELETAL: Right ankle: Skin is dry and intact without open wounds or abrasions. The patient has significant soft tissue swelling over the medial ankle and distal tibia. She is exquisitely tender in that area as well. Ankle range of motion is full with discomfort with standing. She has hindfoot valgus and pes planus, which is not noted on the contralateral side. She is painful to heel rise and has diminished strength against resistance with inversion. Sensation is intact with a 2+ dorsalis pedis pulse. IMAGING: X-rays performed previously in the office showed no acute bony abnormality. MRI shows posterior tibial tendon tear and tenosynovitis. IMPRESSION: Right ankle posterior tibial tendon tear with osteoarthritis. PLAN: Right ankle posterior tibial reconstruction, flexor digitorum longus transfer and calcaneal osteotomy with Dr. Amador. The patient's questions were answered and she would like to proceed. She will follow postoperatively and call with questions or concerns in the interim. JULIO LOPEZ [id number]/[facility] #: [id number] CHARBEL
[~2019-04-20 07:48] MED LIST: Acetaminophen TAB* 325 MG ONE; Acetaminophen TAB* 325 MG PO ONE; Buffered Lidocaine 1% SYRIN* 1 ML/SYRINGE INTRADERM ONE; Bupivacaine 0.5%* 50 ML MDV VIAL ONE; Dexamethasone IV* 4 MG/ML 1 ML (4 MG) ONE; Glycopyrrolate IV* 0.2 MG/ML 1 ML VIAL ONE; HYDROmorphone INJ1* 1 MG/ML SYRINGE ONE; Ketorolac INJ* 30 MG/ML 1 ML VIAL ONE; Lactated Ringers 1000 ML Bag* 1,000 ML IV SCH; Midazolam* 1 MG/ML 2 ML VIAL (2 MG) ONE; Naloxone* 0.4 MG/ML 1 ML VIAL IV PRN; Neostigmine Methylsulfate* 3 MG/3 ML SYRINGE ONE; Ondansetron INJ* 2 MG/ML VIAL IV PRN; Ondansetron INJ* 2 MG/ML VIAL ONE; PROCHLORPERAZINE INJ 5 MG/ML 2 ML VIAL IV PRN; PROCHLORPERAZINE INJ 5 MG/ML 2 ML VIAL ONE; Rocuronium* 10 MG/ML VIAL ONE; Scopolamine 1.5 mg* PATCH ONE; ceFAZolin 2 GM PREMIX in ORs 2 GM/50 ML BAG ONE; diPHENhydraMINE IV* 50 MG/ML 1 ml VIAL (BENADRYL) IV PRN; fentaNYL* 50 MCG/ML 2 ML VIAL (100 MCG VIAL) ONE; oxyCODONE TAB* 5 MG TAB PO PRN
[2019-04-20] MEDS: HYDROmorphone INJ1* 1 MG/ML SYRINGE IV PRN ×3 (12:17→12:43)
[2019-04-20 14:24] VITALS: BP 111/66
--- NOTE | 2019-04-20 21:07 | OP ---
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 OPERATIVE PROCEDURE: Medial displacement calcaneal osteotomy, posterior tibial repair with FDL transfer. DESCRIPTION OF PROCEDURE: The patient was taken to the operating room where a lateral incision was made initially basically parallel to the peroneal tendons. The peroneal tendons were subluxed anteriorly. I resected the large peroneal tubercle and then created a lateral to medial osteotomy using a sagittal saw through the groove of the peroneus longus tendon. We then used 2 broad osteotomes over a bone tamp to spread the medial cortex and once we had good displacement of about 2 cm along the osteotomy site, we shifted this medially at least 14 mm and then pinned this with a 55 mm cannulated screw from the heel up to the floor of the sinus tarsi. The overlapping edge of the calcaneus was rounded with a rongeur and then irrigated, closing with Monocryl sutures subcu and some sheila for the skin. The posterior heel wound was closed with a single 2-0 Prolene suture. We then relaxed the beanbag to roll the patient back to the semi-supine position. A 6 cm longitudinal incision was made from the medial malleolus to the first metatarsal base medially. Through this incision, we developed the dorsal and the plantar flap right outside the periosteum. We opened the sheath of the posterior tibial tendon. There was a fluid collection. The tendon itself was firmly attached to the medial navicular , but it appeared to be thickened, somewhat fibrotic and we debrided the outer third of the tendon longitudinally with a 15-blade. The transfer of the posterior tibial tendon was accomplished by tracing it down to the cross-over with the FHL tendon. At this point, we sewed the 2 tendons [id number] with a 2-0 Vicryl suture, transecting the FDL at this level. We then rerouted the FDL tendon plantar to dorsal through the medial navicular in a 5 mm drill hole and then we sewed the FDL tendon into the debrided edge of the posterior tibial with several 2- 0 Monocryl sutures. The sheath was repaired as well with Vicryl. We then closed the subcu with Monocryl, sheila for the skin, and a compression dressing plaster splint applied. [id number]/[facility] #: [id number] [place]BEL
== END | disposition home or self-care (01) ==
LOC: OR 07:48
PROVIDERS: ATTEND Orthopaedic Surgery
DX: M24.274 Disorder of ligament, right foot (principal); M21.071 Valgus deformity, not elsewhere classified, right ankle; Z68.31 Body mass index [BMI] 31.0-31.9, adult; E78.00 Pure hypercholesterolemia, unspecified; Z85.43 Personal history of malignant neoplasm of ovary
CPT/HCPCS: 76000; A9270-GY; C1713; J0690; J0780; J1100; J1170; J1885; J2250; J2405; J2710; J3010; J3490